=== PATIENT | male | born 1950 | race Two or more races ===

== ENCOUNTER 2017-04-24 11:16 | Day surgery (SDC) | payer OTHER ==
[2017-04-24] MEDS ORDERED: FENTAnyl 50 MCG/ML VIAL (12:14)
[2017-04-24] MEDS ORDERED: MIDAZOLAM 1 MG/ML 2 ML INJ (12:14)
== END 2017-04-24 14:19 | disposition home or self-care (01) ==
LOC: GIL 11:16
DX: Z12.11 Encounter for screening for malignant neoplasm of colon (principal); K64.8 Other hemorrhoids
CPT/HCPCS: 45378